=== PATIENT | male | born 1965 | race Two or more races ===

== ENCOUNTER 2017-01-27 10:46 | Emergency (ER) | payer SELFPAY ==
--- NOTE | ~2017-01-27 | ER ---
PATIENT'S NAME: LAURIE CARRILLO [facility] AGE: 51 Y [address] ROOM: [place] [address] LOCATION: [facility] ADMIT DATE: 01/27/2017 ER/Outpatient Report DISCHARGE DATE: 01/27/2017 FAMILY PHYSICIAN: PHYSICIAN, NO ATTENDING PHYSICIAN: Justyna Daniels TIME OF ARRIVAL: 10:46 hours. TIME SEEN: 11:09 hours. IDENTIFICATION: A 51-year-old male. CHIEF COMPLAINT: Headache. HISTORY OF PRESENT ILLNESS: The patient is a 51-year-old male from [place], [place] who is working here. He speaks minimal Portuguese so history was obtained through our outpatient interviewing clerk Nicole. He is complaining of not feeling well since yesterday. He developed headache and myalgias yesterday. He has been cold. He does not know about fever. He has had nausea and vomiting. No ill contacts. He feels weak. ALLERGIES: NO KNOWN DRUG ALLERGIES. CURRENT MEDICATIONS: 1. Lisinopril 20 mg daily. 2. Amlodipine 10 mg daily. 3. Baby aspirin daily. 4. Sudafed p.r.n. MEDICAL PROBLEMS: Hypertension. PRIOR SURGERIES: Denies. SOCIAL HISTORY: The patient is from [place]. He is currently working here as a driller. Tobacco use, denies. Alcohol use, denies. Drug use, denies. REVIEW OF SYSTEMS: PATIENT'S NAME: LAURIE CARRILLO [facility] AGE: 51 Y [address] ROOM: [place] [address] LOCATION: [facility] ADMIT DATE: 01/27/2017 ER/Outpatient Report DISCHARGE DATE: 01/27/2017 FAMILY PHYSICIAN: PHYSICIAN, DEVIN ATTENDING PHYSICIAN: Justyna Daniels All systems reviewed and negative other than what is noted in the HPI. He did not receive a flu shot. PHYSICAL EXAMINATION: VITAL SIGNS: Weight 75 kg. Blood pressure 156/98, pulse 80, respirations 20, temp 96.5, and sats 98%. He did take Tylenol this morning. GENERAL: A pleasant male in no acute distress. HEENT: Head: Normocephalic, atraumatic. Ears: TMs translucent both ears. Nose: Mucosa pink. No lesions or drainage. Mouth: No lesions. Pharynx benign. NECK: Supple. No lymphadenopathy. No nuchal rigidity. LUNGS: Clear to auscultation. Breath sounds are equal. HEART: Regular rate and rhythm. No murmur, rub, or gallop. ABDOMEN: Bowel sounds present. Soft, nondistended. No hepatosplenomegaly. No palpable masses. Nontender. SKIN: [place], warm, and dry. No lesions or rashes noted. NEURO: The patient is alert and oriented x4. Cranial nerves 2 through 12 grossly intact. Motor strength 5/5 throughout. Sensation is intact to light touch. LABORATORY DATA: Head CT, left nasal cavity mass, which is indeterminate, could be a large polyp per Radiology. Influenza A is positive. Hemoglobin 17.4, hematocrit 53.1, platelets 127, and white count 6.4. Sed rate 4. Sodium 138, potassium 4.1, chloride 103, CO2 26, BUN 11, creatinine 0.7, and blood sugar 109. Liver enzymes normal. CRP 1.26. EMERGENCY DEPARTMENT COURSE: The patient was given Toradol 60 mg IM and he felt much better with this. IMPRESSION: 1. Influenza A. 2. Headache, secondary to influenza A, improved with Toradol. 3. Mild thrombocytopenia. 4. Nasal polyp on CT scan. PLAN: Influenza handout in [place]. Tamiflu 75 mg b.i.d. for 5 days. Tylenol or Advil for fever. Rest. No work until afebrile x24 hours without using fever reducers. Follow up with physician of choice in 1 to 2 days. The patient understands and agrees and all questions have been answered. Discharge instructions were given to him again with our outpatient interviewing clerk, Nicole. PATIENT'S NAME: OVIDIO OTERO [facility] AGE: 51 Y [address] ROOM: [place] [address] LOCATION: [facility] ADMIT DATE: 01/27/2017 ER/Outpatient Report DISCHARGE DATE: 01/27/2017 FAMILY PHYSICIAN: PHYSICIAN, NO ATTENDING PHYSICIAN: Justyna Daniels JUSTYNA DANIELS MD CAR/modl /[id number] d: 01/28/17 0054 t: 01/28/17 1444, OUTPATIENT REPORT
[2017-01-27 11:39] LABS: BASOPHIL % 0.5 %; HEMATOCRIT 53.1 % (37.0-53.0); HEMOGLOBIN 17.4 g/dL (12.0-17.0); IMMATURE GRANULOCYTE % 0.2 %; LYMPHOCYTE # 1.2 K/uL (0.8-4.0); LYMPHOCYTE % 18.8 %; MCH 29.3 pg (27.0-34.0); MCHC 32.8 gm/dL (32.0-36.5); MCV 89.4 fl (83.0-98.0); MONOCYTE # 0.5 K/uL (0.0-1.0); MONOCYTE % 7.8 %; MPV 10.9 fl (9.4-12.4); NEUTROPHIL # (ANC) 4.7 K/uL (1.4-9.0); NEUTROPHIL % 72.7 %; NRBC % 0 /100WBC (0-0.00); PLATELET COUNT 127 K/uL (150-450); RBC 5.94 M/uL (4.00-6.00); RDW-CV 13.2 % (11.9-14.6); WBC 6.4 K/uL (4.0-11.0)
[2017-01-27 11:56] LABS: ALBUMIN 3.6 gm/dL (3.5-5.0); ALK PHOS 95 IU/L (33-138); ALT 33 IU/L (12-78); ANION GAP 13.1 (10.0-19.0); AST 25 IU/L (10-40); BLOOD UREA NITROGEN 11 mg/dL (6-24); CALCIUM 8.4 mg/dL (8.5-10.5); CHLORIDE 103 mMol/L (96-110); CO2 26 mMol/L (22-32); CREATININE 0.7 mg/dL (0.6-1.3); ESTIMATED GFR (MDRD EQUATION) > 60; POTASSIUM 4.1 mMol/L (3.7-5.1); SODIUM 138 mMol/L (135-145); TOTAL BILIRUBIN 0.3 mg/dL (0.0-1.5); TOTAL PROTEIN 7.1 g/dL (6.0-8.4)
== END 2017-01-27 13:06 | disposition disaster alternative care site (69) ==
LOC: GMED 10:46
PROVIDERS: Family Medicine
DX: J10.1 Influenza due to other identified influenza virus with other respiratory manifestations (principal); D69.6 Thrombocytopenia, unspecified; R51 Headache; J33.9 Nasal polyp, unspecified; I10 Essential (primary) hypertension; Z79.82 Long term (current) use of aspirin
CPT/HCPCS: J1885